=== PATIENT | female | born 1955 | race Caucasian/White ===

== ENCOUNTER → 2022-04-26 | Outpatient (CLI) | payer MEDICARE | LOC: ORTHO 09:14 | PROVIDERS: ATTEND Orthopaedic Surgery | DX: M25.572 Pain in left ankle and joints of left foot (principal); Z98.890 Other specified postprocedural states | CPT/HCPCS: 99203 ==

== ENCOUNTER → 2022-06-07 | Outpatient (CLI) | payer MEDICARE ==
--- NOTE | 2022-06-07 10:21 | Diagnostic Imaging Report ---
EXAMINATION: Left ankle radiographs, 3 views. COMPARISON: None. HISTORY: 67-year-old female, followup hardware in the region of the left ankle. FINDINGS: There is a small calcaneal heel spur. There is mild degenerative type enthesopathy at the Achilles tendon insertion. There is a fixation screw extending across the posterior subtalar joint. There is lateral screw fixation hardware which also appears to be bridging across the posterior subtalar joint. 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 There is mild anterior talar beaking. The ankle mortise is grossly unremarkable. There is no tibiotalar joint effusion. IMPRESSION: 1. No identified acute bony abnormality left ankle. 2. Intact hardware without apparent complication. 3. 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 4. Small calcaneal heel spur. Dictated by: Dictated on workstation # [id number]
== END ==
LOC: ORTHO 09:01
PROVIDERS: ATTEND Orthopaedic Surgery
DX: M77.32 Calcaneal spur, left foot (principal)
CPT/HCPCS: 73610; G0463; 99213